=== PATIENT | male | born 1980 | race Two or more races ===

== ENCOUNTER 2019-05-20 16:43 | Emergency (ER) | payer MEDICAID ==
[~2019-05-20] VITALS: Ht 165.1 cm; Wt 54.4 kg
[2019-05-20 16:51] VITALS: BP 131/77
[2019-05-20] MEDS ORDERED: methylPREDNISolone SOD SUCC 125 MG/2 ML VL IM ONE (19:00)
[2019-05-20] MEDS ORDERED: ACETAMINOPHEN/CODEINE#3 (300/30mg) TAB PO ONE (19:00)
[2019-05-20] MEDS ORDERED: BACLOFEN 10 MG TAB PO ONE (19:00)
== END 2019-05-20 19:52 | disposition home or self-care (01) ==
LOC: ER 16:43
DX: R51 Headache (principal); M62.838 Other muscle spasm; M54.2 Cervicalgia
CPT/HCPCS: 70450; 82962; 96372; 99284; J2930